=== PATIENT | female | born 1995 | race Caucasian/White ===

== ENCOUNTER 2017-04-21 17:38 | Emergency (ER) | payer OTHER ==
[2017-04-21 19:24] VITALS: BP 105/55
--- NOTE | 2017-04-21 20:08 | UC ---
Throat Pain/Nasal Kar HPI - HPI Summary HPI Summary: TWO DAYS OF SWOLLEN TONSILS, SORE THROAT, FATIGUE. NO FEVER. STREP AND MONO GOING AROUND SCHOOL. - History of Current Complaint Chief Complaint: UCGeneralIllness Stated Complaint: THROAT COMPLAINT Time Seen by Provider: 04/21/17 19:37 Hx Obtained From: Patient Onset/Duration: Gradual Onset, Lasting Days, Still Present Severity: Moderate Cough: None Associated Signs & Symptoms: Positive: Dysphagia, Hoarseness - Epiglottits Risk Factors Epiglottis Risk Factors: Negative - Allergies/Home Medications Allergies/Adverse Reactions: Allergies Allergy/AdvReac Type Severity Reaction Status Date / Time Ibuprofen Allergy Hives Verified 04/21/17 19:24 Sulfamethoxazole Allergy Hives Verified 04/21/17 19:24 w/Trimethoprim [From Bactrim] Home Medications: Home Medications Escitalopram Oxalate [Lexapro 10 mg] 20 mg PO DAILY 04/21/17 [History Confirmed 04/21/17] Oral Control 1 tab PO DAILY 04/21/17 [History Confirmed 04/21/17] PMH/Surg Hx/FS Hx/Imm Hx Previously Healthy: Yes - Surgical History Surgical History: Yes Surgery Procedure, Year, and Place: wisdom teeth - Family History Known Family History: Negative: Respiratory Disease - Social History Occupation: Student Lives: With Family Alcohol Use: Rare Substance Use Type: Marijuana Smoking Status (MU): Never Smoked Tobacco Review of Systems Constitutional: Fatigue Skin: Negative Eyes: Negative ENT: Sore Throat Respiratory: Negative Cardiovascular: Negative Gastrointestinal: Negative Genitourinary: Negative Motor: Negative Neurovascular: Negative Musculoskeletal: Negative Neurological: Negative Psychological: Negative Is Patient Immunocompromised?: No All Other Systems Reviewed And Are Negative: Yes Physical Exam Triage Information Reviewed: Yes Appearance: Well-Appearing, No Pain Distress, Well-Nourished Vital Signs: Initial Vital Signs Temp 98.6 F 04/21/17 19:21 Pulse 74 04/21/17 19:21 Resp 16 04/21/17 19:21 BP 105/55 04/21/17 19:21 Pulse Ox 98 04/21/17 19:21 Vital Signs Reviewed: Yes Eye Exam: Normal ENT: Positive: Normal ENT inspection, Hearing grossly normal, Pharyngeal erythema, TMs normal, Tonsillar swelling, Tonsillar exudate Dental Exam: Normal Neck exam: Normal Neck: Positive: Supple, Nontender, No Lymphadenopathy Respiratory Exam: Normal Respiratory: Positive: Chest non-tender, Lungs clear, Normal breath sounds, No respiratory distress, No accessory muscle use Cardiovascular Exam: Normal Cardiovascular: Positive: RRR, No Murmur, Pulses Normal Abdominal Exam: Normal Musculoskeletal Exam: Normal Musculoskeletal: Positive: Strength Intact, ROM Intact Neurological Exam: Normal Psychological Exam: Normal Skin Exam: Normal Throat Pain/Nasal Course/Dx - Differential Dx/Diagnosis Differential Diagnosis/HQI/PQRI: Pharyngitis, Sinusitis, Tonsillitis, URI Provider Diagnoses: TONSILITIS Discharge - Discharge Plan Condition: Stable Disposition: HOME Prescriptions: Clindamycin Cap(NF) [Clindamycin Cap 300 mg Cap(NF)] 300 mg PO TID #30 cap Patient Education Materials: Tonsillitis (ED) Forms: *School Release Referrals: Non Staff,Doctor [Primary Care Provider] -
[2017-04-22 14:08] LABS: Mono Internal Control QC Line Present
[2017-04-22 14:09] LABS: Manual Entry Verification CAS0014
== END 2017-04-21 20:17 | disposition home or self-care (01) ==
LOC: UCCORT 17:38
DX: J03.90 Acute tonsillitis, unspecified (principal); Z88.6 Allergy status to analgesic agent; Z88.2 Allergy status to sulfonamides
CPT/HCPCS: 36415; 86308; 87651; 99202; G0463